=== PATIENT | female | born 1955 | race Two or more races ===

== ENCOUNTER 2021-07-14 14:46 | Inpatient (IN) | payer MEDICARE, BC ==
[~2021-07-14] VITALS: Ht 177.8 cm; Wt 95.2 kg
[2021-07-14] MEDS ORDERED: SODIUM CHLORIDE 0.9% 500 ML IVB ONE (15:15)
[2021-07-14 15:20] LABS: Urine Bacteria MANY /hpf (None Seen); Urine Blood 1+ /uL (Negative); Urine Mucus FEW (None Seen); Urine Specific Gravity 1.025 (1.001-1.035); Urine WBC 127 /hpf (0 - 5); Urine WBC Clumps PRESENT /hpf (None Seen)
[2021-07-14 15:59] LABS: Basophils # (auto) 0.1 10 ^3/uL (0-0.2); Basophils % (auto) 0.4 % (0.0-2.0); Eosinophils # (auto) 0 10 ^3/uL (0-0.8); Eosinophils % (auto) 0.2 % (0.0-7.0); Hematocrit 37.3 % (36.0-46.0); Hemoglobin 12.3 g/dL (12.2-16.2); Lymphocytes % (auto) 14.4 % (10.0-50.0); Mean Corpuscular Hemoglobin 31.9 pg (28.0-32.0); Mean Corpuscular Hgb Conc. 33.1 g/dL (32.0-36.0); Mean Corpuscular Volume 96.3 fL (80.0-100.0); Monocytes # (auto) 0.5 10 ^3/uL (0-1.3); Monocytes % (auto) 3.8 % (0.0-12.0); Neutrophils # (auto) 11.5 10 ^3/uL (1.6-8.6); Neutrophils % (auto) 81.2 % (37.0-80.0); Red Blood Cells 3.87 10^6/uL (4.0-5.20); Red Cell Distribution Width 13.4 % (11.8-14.3); White Blood Cell 14.1 10^3/uL (4.4-10.8)
[2021-07-14 16:07] LABS: Albumin 2.2 g/dL (3.4-5.0); Calcium 8.6 mg/dL (8.5-10.1); Potassium 4.3 mmol/L (3.5-5.1)
[2021-07-14 16:09] LABS: BUN/Creatinine Ratio 9.7
[2021-07-14 16:12] LABS: Bilirubin, Total 0.8 mg/dL (0.2-1.0); Total Protein 6.9 g/dL (6.4-8.2)
[2021-07-14] MEDS ORDERED: cefTRIAXone 1GM/50ML D5W 50 ML IV ONE (16:30)
[2021-07-14] MEDS ORDERED: MORPHINE SULFATE INJECTION 2 MG/ML SYRG IV ONE (16:30)
[2021-07-14] MEDS ORDERED: ONDANSETRON HCL 4 MG/2 ML VIAL IV ONE (16:30)
[2021-07-14] MEDS ORDERED: MORPHINE SULFATE INJECTION 2 MG/ML SYRG IV PRN ×2 (17:45→23:15)
[2021-07-14] MEDS ORDERED: NITROGLYCERIN 0.4 MG SL TAB SL PRN ×2 (17:45→23:15)
[2021-07-14] MEDS ORDERED: DEXTROSE (50%) 50ML SYRG IV PRN (17:45)
[2021-07-14 22:00] VITALS: BP 116/63
[2021-07-14] MEDS ORDERED: InsuLIN REG 1unit/0.01ml Soln (100units/ml) SC SCH (22:00)
[2021-07-14] MEDS: ACCU-CHEK COMFORT CURVE STRIP VI SCH (22:00)
[2021-07-14] MEDS: ACETAMINOPHEN 325 MG TAB PO PRN (23:08)
[2021-07-14] MEDS ORDERED: metroNIDAZOLE 500MG/100ML 100 ML IV ONE (23:15)
[2021-07-14] MEDS ORDERED: ACETAMINOPHEN 325 MG TAB PO PRN (23:15)
[2021-07-14] MEDS ORDERED: METOCLOPRAMIDE HCL 5MG/ml INJ 2ml VIAL IV PRN (23:15)
[2021-07-14] MEDS ORDERED: PANTOPRAZOLE 40 MG/10 ML VIAL INJ IV ONE (23:15)
[2021-07-14] MEDS ORDERED: DOCUSATE SOD 100 MG CAP PO PRN (23:15)
[2021-07-14] MEDS ORDERED: SODIUM CHLORIDE 0.9% 1,000 ML IV SCH (23:15)
[2021-07-14] MEDS ORDERED: ALUM & MAG HYDROX-SIMETH LIQ(MAALOX) 30 ML PO PRN (23:15)
[2021-07-14] MEDS ORDERED: LORazepam 0.5 MG TAB PO PRN (23:15)
[2021-07-14] MEDS ORDERED: LACTATED RINGER'S 1,000 ML IV ONE (23:15)
[2021-07-14] MEDS ORDERED: hydrALAZINE HCL 20 MG/ML VL IV PRN (23:15)
[2021-07-14] MEDS ORDERED: levoFLOXacin 250MG 50 ML IV SCH (23:30)
[2021-07-14 23:39] LABS: Cholesterol 128 mg/dL (< 200)
[2021-07-14 23:41] LABS: HDL Cholesterol 21 mg/dL (40-59); LDL Cholesterol 50 mg/dL (< 100); Triglycerides 204 mg/dL (< 150)
[2021-07-15] VITALS (7 sets, daily range): BP systolic 93–116; BP diastolic 57–63
[2021-07-15] MEDS: HYDROcodone-ACET 5/325MG TAB PO PRN ×3 (00:03→09:37)
[2021-07-15 05:17] LABS: Basophils # (auto) 0 10 ^3/uL (0-0.2); Basophils % (auto) 0.4 % (0.0-2.0); Eosinophils # (auto) 0.1 10 ^3/uL (0-0.8); Eosinophils % (auto) 0.6 % (0.0-7.0); Hematocrit 31.1 % (36.0-46.0); Hemoglobin 10.2 g/dL (12.2-16.2); Lymphocytes % (auto) 8.7 % (10.0-50.0); Mean Corpuscular Hemoglobin 31.2 pg (28.0-32.0); Mean Corpuscular Hgb Conc. 32.8 g/dL (32.0-36.0); Mean Corpuscular Volume 95.1 fL (80.0-100.0); Monocytes # (auto) 0.4 10 ^3/uL (0-1.3); Monocytes % (auto) 3.3 % (0.0-12.0); Neutrophils # (auto) 9.9 10 ^3/uL (1.6-8.6); Red Blood Cells 3.27 10^6/uL (4.0-5.20); Red Cell Distribution Width 13.4 % (11.8-14.3); White Blood Cell 11.4 10^3/uL (4.4-10.8)
[2021-07-15 05:47] LABS: INR 1.37 (0.9-1.15); Partial Thromboplastin Time 39.3 sec (23.6-33.0)
[2021-07-15 05:54] LABS: Albumin 1.7 g/dL (3.4-5.0); Calcium 8.2 mg/dL (8.5-10.1)
[2021-07-15] MEDS: metroNIDAZOLE 500MG/100ML 100 ML IV SCH ×3 (06:02→21:34)
[2021-07-15 06:04] LABS: BUN/Creatinine Ratio 12.4; Bilirubin, Total 0.4 mg/dL (0.2-1.0); Magnesium 1.6 mg/dL (1.6-2.6); Phosphorus 2.5 mg/dL (2.5-4.90); Total Protein 6.8 g/dL (6.4-8.2); Uric Acid 7.4 mg/dL (2.6-6.0)
[2021-07-15] MEDS: InsuLIN REG 1unit/0.01ml Soln (100units/ml) SC SCH ×2 (06:34→12:01)
[2021-07-15] MEDS: ACCU-CHEK COMFORT CURVE STRIP VI SCH ×4 (06:34→21:11)
[2021-07-15] MEDS ORDERED: ASPI81CH49 PO (07:44)
[2021-07-15] MEDS ORDERED: INSLANTI SC (07:44)
[2021-07-15] MEDS ORDERED: LISI40TA11 PO (07:44)
[2021-07-15] MEDS ORDERED: METF-370 PO (07:44)
[2021-07-15] MEDS: PANTOPRAZOLE 40 MG/10 ML VIAL INJ IV SCH (09:35)
[2021-07-15] MEDS: ENOXAPARIN SOD 30 MG/0.3 ML SYRINGE SC SCH (09:36)
[2021-07-15] MEDS ORDERED: ASPirin 81 mg TAB PO SCH (10:00)
[2021-07-15] MEDS ORDERED: DEXTROSE (50%) 50ML SYRG IV PRN (13:00)
[2021-07-15] MEDS ORDERED: cefTRIAXone 1GM/50ML D5W 50 ML IV ONE (13:30)
[2021-07-15] MEDS ORDERED: TPN PER PHARMACY 0 ML IV SCH ×2 (13:30)
[2021-07-15] MEDS ORDERED: MAGNESIUM SULFATE 1GM/100ML 100 ML IV ONE (13:30)
[2021-07-15] MEDS: SODIUM CHLORIDE 0.9% 1,000 ML IV SCH ×2 (13:47→23:30)
[2021-07-15] MEDS: ACETAMINOPHEN 325 MG TAB PO PRN (14:25)
[2021-07-15] MEDS ORDERED: InsuLIN REG 1unit/0.01ml Soln (100units/ml) SC SCH ×2 (17:00→22:00)
[2021-07-15] MEDS: MORPHINE SULFATE INJECTION 2 MG/ML SYRG IV PRN (18:03)
[2021-07-15] MEDS ORDERED: PPN PER PHARMACY IV NR ×7 (20:00)
[2021-07-15] MEDS ORDERED: ATORVASTATIN 20 MG TAB PO SCH (22:00)
[2021-07-16] MEDS ORDERED: DEXTROSE (50%) 50ML SYRG IV SCH
[2021-07-16 02:46] LABS: Amphetamine Screen, Urine NEGATIVE (NEGATIVE); Barbiturate Scree,Urine NEGATIVE (NEGATIVE); Benzodiazephine Screen, Urine NEGATIVE (NEGATIVE); Cannabinoid Screen, Urine NEGATIVE (NEGATIVE); Cocaine Screen, Urine NEGATIVE (NEGATIVE); Opiate Scree,Urine POSITIVE (NEGATIVE); Phencyclidine Screen, Urine NEGATIVE (NEGATIVE)
[2021-07-16 03:12] LABS: Creatinine, Urine 203 mg/dL (30.0-125.0); Sodium Urine 26 mmol/L (40-220)
[2021-07-16 03:16] LABS: Protein, Urine 191.1 mg/dL (0.0-11.9)
[2021-07-16 05:00] VITALS: BP 119/70
[2021-07-16] MEDS: metroNIDAZOLE 500MG/100ML 100 ML IV SCH ×3 (05:29→22:15)
[2021-07-16] MEDS: ACCU-CHEK COMFORT CURVE STRIP VI SCH ×4 (05:31→17:51)
[2021-07-16] MEDS: InsuLIN REG 1unit/0.01ml Soln (100units/ml) SC SCH ×4 (05:40→17:50)
[2021-07-16 06:02] LABS: Basophils # (auto) 0 10 ^3/uL (0-0.2); Basophils % (auto) 0.3 % (0.0-2.0); Eosinophils # (auto) 0 10 ^3/uL (0-0.8); Eosinophils % (auto) 0.3 % (0.0-7.0); Hematocrit 30.6 % (36.0-46.0); Hemoglobin 10.1 g/dL (12.2-16.2); Lymphocytes # (auto) 1.4 10 ^3/uL (0.4-5.4); Lymphocytes % (auto) 10.6 % (10.0-50.0); Mean Corpuscular Hemoglobin 31.6 pg (28.0-32.0); Mean Corpuscular Volume 95.8 fL (80.0-100.0); Monocytes # (auto) 0.4 10 ^3/uL (0-1.3); Monocytes % (auto) 3.2 % (0.0-12.0); Neutrophils # (auto) 10.9 10 ^3/uL (1.6-8.6); Neutrophils % (auto) 85.6 % (37.0-80.0); Red Blood Cells 3.19 10^6/uL (4.0-5.20); Red Cell Distribution Width 13.6 % (11.8-14.3); White Blood Cell 12.8 10^3/uL (4.4-10.8)
[2021-07-16 07:08] LABS: Potassium 4.2 mmol/L (3.5-5.1)
[2021-07-16 07:09] LABS: Albumin 1.6 g/dL (3.4-5.0); BUN/Creatinine Ratio 18.5; Bilirubin, Total 0.3 mg/dL (0.2-1.0); Calcium 8.1 mg/dL (8.5-10.1); Magnesium 1.6 mg/dL (1.6-2.6); Phosphorus 2.3 mg/dL (2.5-4.90); Total Protein 6.1 g/dL (6.4-8.2)
[2021-07-16 09:00] VITALS: BP 134/75
[2021-07-16] MEDS: PANTOPRAZOLE 40 MG/10 ML VIAL INJ IV SCH (09:11)
[2021-07-16] MEDS: cefTRIAXone 1GM/50ML D5W 50 ML IV SCH (09:11)
[2021-07-16] MEDS: ENOXAPARIN SOD 30 MG/0.3 ML SYRINGE SC SCH (09:12)
[2021-07-16] MEDS: MAGNESIUM SULFATE 1GM/100ML 100 ML IV SCH ×2 (09:51→11:31)
[2021-07-16] MEDS ORDERED: POTASSIUM PHOSPHATE 22 MEQ in SODIUM CHL 0.9% 100 ML IV ONE (11:30)
[2021-07-16] MEDS ORDERED: LIDOCAINE 1% (LOCAL ANESTH.) PF 5ml SDV ID ONE (12:00)
[2021-07-16 12:46] VITALS: BP 140/63
[2021-07-16 16:53] VITALS: BP 133/56
[2021-07-16 20:00] VITALS: BP 154/74
[2021-07-16] MEDS ORDERED: PPN PER PHARMACY IV NR ×8 (20:00)
[2021-07-16 22:00] VITALS: BP 154/74
[2021-07-16] MEDS: SODIUM CHLOR 0.9% PF (SALINE LOCK) 10ML VIAL/SYR IV SCH (22:14)
[2021-07-17] MEDS: InsuLIN REG 1unit/0.01ml Soln (100units/ml) SC SCH ×4 (00:30→18:18)
[2021-07-17] MEDS: ACCU-CHEK COMFORT CURVE STRIP VI SCH ×4 (00:43→18:00)
[2021-07-17 05:00] VITALS: BP 123/64
[2021-07-17] MEDS: metroNIDAZOLE 500MG/100ML 100 ML IV SCH ×2 (06:14→15:52)
[2021-07-17 06:56] LABS: Basophils # (auto) 0.1 10 ^3/uL (0-0.2); Basophils % (auto) 0.6 % (0.0-2.0); Eosinophils # (auto) 0.1 10 ^3/uL (0-0.8); Eosinophils % (auto) 1.2 % (0.0-7.0); Hematocrit 30.7 % (36.0-46.0); Hemoglobin 10.2 g/dL (12.2-16.2); Lymphocytes # (auto) 1.1 10 ^3/uL (0.4-5.4); Mean Corpuscular Hemoglobin 31.5 pg (28.0-32.0); Mean Corpuscular Hgb Conc. 33.1 g/dL (32.0-36.0); Monocytes # (auto) 0.6 10 ^3/uL (0-1.3); Monocytes % (auto) 5.9 % (0.0-12.0); Neutrophils # (auto) 7.9 10 ^3/uL (1.6-8.6); Neutrophils % (auto) 81.3 % (37.0-80.0); Red Blood Cells 3.23 10^6/uL (4.0-5.20); White Blood Cell 9.7 10^3/uL (4.4-10.8)
[2021-07-17 07:22] LABS: Albumin 1.6 g/dL (3.4-5.0); Calcium 7.9 mg/dL (8.5-10.1); Magnesium 2.6 mg/dL (1.6-2.6); Potassium 4.4 mmol/L (3.5-5.1)
[2021-07-17 07:26] LABS: BUN/Creatinine Ratio 18.2; Bilirubin, Total 0.4 mg/dL (0.2-1.0); Phosphorus 2.4 mg/dL (2.5-4.90); Total Protein 6.1 g/dL (6.4-8.2)
[2021-07-17 08:50] VITALS: BP 140/55
[2021-07-17] MEDS: cefTRIAXone 1GM/50ML D5W 50 ML IV SCH (09:20)
[2021-07-17] MEDS: SODIUM CHLOR 0.9% PF (SALINE LOCK) 10ML VIAL/SYR IV SCH (09:21)
[2021-07-17] MEDS: PANTOPRAZOLE 40 MG/10 ML VIAL INJ IV SCH (09:21)
[2021-07-17] MEDS ORDERED: ENOXAPARIN SOD 40 MG/0.4 ML SYRINGE SC SCH (10:00)
[2021-07-17 12:00] VITALS: BP 144/78
[2021-07-17 17:00] VITALS: BP 144/72
[2021-07-17] MEDS ORDERED: TPN PER PHARMACY IV NR ×7 (20:00)
[2021-07-17 22:00] VITALS: BP 163/94
[2021-07-18] MEDS: ACCU-CHEK COMFORT CURVE STRIP VI SCH ×4 (00:27→17:33)
[2021-07-18] MEDS: InsuLIN REG 1unit/0.01ml Soln (100units/ml) SC SCH ×4 (00:27→17:32)
[2021-07-18] MEDS: metroNIDAZOLE 500MG/100ML 100 ML IV SCH ×4 (00:29→21:31)
[2021-07-18] MEDS: SODIUM CHLOR 0.9% PF (SALINE LOCK) 10ML VIAL/SYR IV SCH ×3 (00:29→21:47)
[2021-07-18 05:00] VITALS: BP 144/85
[2021-07-18 06:51] LABS: Albumin 1.3 g/dL (3.4-5.0); BUN/Creatinine Ratio 20.8; Bilirubin, Total 0.4 mg/dL (0.2-1.0); Phosphorus 2.5 mg/dL (2.5-4.90); Total Protein 5.1 g/dL (6.4-8.2)
[2021-07-18 08:07] LABS: Calcium 5.8 mg/dL (8.5-10.1)
[2021-07-18 09:00] VITALS: BP 139/79
[2021-07-18] MEDS: cefTRIAXone 1GM/50ML D5W 50 ML IV SCH (12:38)
[2021-07-18 12:50] VITALS: BP 146/76
[2021-07-18 16:36] VITALS: BP 126/80
[2021-07-18 19:30] VITALS: BP 148/66
[2021-07-18] MEDS ORDERED: TPN PER PHARMACY IV NR ×9 (20:00)
[2021-07-18 22:00] VITALS: BP 148/66
[2021-07-19] MEDS: ACCU-CHEK COMFORT CURVE STRIP VI SCH ×5 (00:31→23:50)
[2021-07-19] MEDS: InsuLIN REG 1unit/0.01ml Soln (100units/ml) SC SCH ×5 (00:32→23:48)
[2021-07-19 05:00] VITALS: BP 146/81
[2021-07-19] MEDS: metroNIDAZOLE 500MG/100ML 100 ML IV SCH ×3 (05:46→21:54)
[2021-07-19] MEDS: MORPHINE SULFATE INJECTION 2 MG/ML SYRG IV PRN (05:46)
[2021-07-19 06:14] LABS: Basophils # (auto) 0 10 ^3/uL (0-0.2); Basophils % (auto) 0.4 % (0.0-2.0); Eosinophils # (auto) 0.3 10 ^3/uL (0-0.8); Eosinophils % (auto) 3.1 % (0.0-7.0); Hemoglobin 11.1 g/dL (12.2-16.2); Lymphocytes # (auto) 1.4 10 ^3/uL (0.4-5.4); Lymphocytes % (auto) 14.1 % (10.0-50.0); Mean Corpuscular Hemoglobin 30.6 pg (28.0-32.0); Mean Corpuscular Hgb Conc. 32.7 g/dL (32.0-36.0); Mean Corpuscular Volume 93.7 fL (80.0-100.0); Monocytes # (auto) 0.9 10 ^3/uL (0-1.3); Monocytes % (auto) 9.7 % (0.0-12.0); Neutrophils # (auto) 7.1 10 ^3/uL (1.6-8.6); Neutrophils % (auto) 72.7 % (37.0-80.0); Nucleated Red Blood Cells % 0.1 %; Red Blood Cells 3.63 10^6/uL (4.0-5.20); Red Cell Distribution Width 14.1 % (11.8-14.3); White Blood Cell 9.7 10^3/uL (4.4-10.8)
[2021-07-19 06:25] LABS: Potassium 3.9 mmol/L (3.5-5.1)
[2021-07-19 06:35] LABS: Albumin 1.7 g/dL (3.4-5.0); Bilirubin, Total 0.5 mg/dL (0.2-1.0); Phosphorus 3.5 mg/dL (2.5-4.90); Total Protein 6.3 g/dL (6.4-8.2)
[2021-07-19 09:00] VITALS: BP 134/78
[2021-07-19] MEDS ORDERED: LACTULOSE 20Gm/30ML SOLN PO PRN (09:45)
[2021-07-19] MEDS: cefTRIAXone 1GM/50ML D5W 50 ML IV SCH (10:00)
[2021-07-19] MEDS: SODIUM CHLOR 0.9% PF (SALINE LOCK) 10ML VIAL/SYR IV SCH ×2 (10:00→21:54)
[2021-07-19 13:00] VITALS: BP 139/76
[2021-07-19 17:00] VITALS: BP 142/80
[2021-07-19] MEDS ORDERED: TPN PER PHARMACY IV SCH ×10 (20:00)
[2021-07-19 20:20] VITALS: BP_SYST 145; BP_SYST 148; BP_DIAS 66
[2021-07-19 21:45] VITALS: BP 145/66
[2021-07-19] MEDS ORDERED: DEXTROSE (50%) 50ML SYRG IV PRN (23:30)
[2021-07-20] MEDS ORDERED: InsuLIN REG 1unit/0.01ml Soln (100units/ml) SC SCH
[2021-07-20] MEDS ORDERED: ACCU-CHEK COMFORT CURVE STRIP VI SCH
[2021-07-20] MEDS ORDERED: DEXTROSE (50%) 50ML SYRG IV PRN (00:15)
[2021-07-20 05:00] VITALS: BP 147/69
[2021-07-20] MEDS: ACCU-CHEK COMFORT CURVE STRIP VI SCH ×3 (05:37→18:24)
[2021-07-20] MEDS: metroNIDAZOLE 500MG/100ML 100 ML IV SCH (05:37)
[2021-07-20] MEDS: InsuLIN REG 1unit/0.01ml Soln (100units/ml) SC SCH ×4 (05:47→23:59)
[2021-07-20 06:51] LABS: Basophils # (auto) 0 10 ^3/uL (0-0.2); Basophils % (auto) 0.3 % (0.0-2.0); Eosinophils # (auto) 0.3 10 ^3/uL (0-0.8); Eosinophils % (auto) 2.4 % (0.0-7.0); Hematocrit 32.3 % (36.0-46.0); Hemoglobin 10.7 g/dL (12.2-16.2); Lymphocytes # (auto) 1.6 10 ^3/uL (0.4-5.4); Lymphocytes % (auto) 12.8 % (10.0-50.0); Mean Corpuscular Hemoglobin 31.1 pg (28.0-32.0); Mean Corpuscular Hgb Conc. 33.3 g/dL (32.0-36.0); Mean Corpuscular Volume 93.4 fL (80.0-100.0); Monocytes # (auto) 0.9 10 ^3/uL (0-1.3); Monocytes % (auto) 7.1 % (0.0-12.0); Neutrophils # (auto) 9.5 10 ^3/uL (1.6-8.6); Neutrophils % (auto) 77.4 % (37.0-80.0); Red Blood Cells 3.46 10^6/uL (4.0-5.20); White Blood Cell 12.2 10^3/uL (4.4-10.8)
[2021-07-20 07:05] LABS: Albumin 1.7 g/dL (3.4-5.0); Calcium 8.2 mg/dL (8.5-10.1); Potassium 3.8 mmol/L (3.5-5.1)
[2021-07-20 07:20] LABS: BUN/Creatinine Ratio 14.7; Bilirubin, Total 0.5 mg/dL (0.2-1.0)
[2021-07-20] MEDS ORDERED: IOHEXOL 300 MG/ML 100ML BOTTLE IJ ONE (07:42)
[2021-07-20 09:00] VITALS: BP 129/79
[2021-07-20] MEDS: SODIUM CHLOR 0.9% PF (SALINE LOCK) 10ML VIAL/SYR IV SCH ×2 (09:53→22:01)
[2021-07-20] MEDS: cefTRIAXone 1GM/50ML D5W 50 ML IV SCH (09:53)
[2021-07-20 12:49] VITALS: BP 152/93
[2021-07-20 17:00] VITALS: BP 147/69
[2021-07-20] MEDS: metroNIDAZOLE 500 MG TAB PO SCH (21:56)
[2021-07-21] MEDS: ACCU-CHEK COMFORT CURVE STRIP VI SCH ×3 (00:01→12:21)
[2021-07-21 05:00] VITALS: BP 146/83
[2021-07-21] MEDS: metroNIDAZOLE 500 MG TAB PO SCH ×2 (05:47→15:12)
[2021-07-21] MEDS: InsuLIN REG 1unit/0.01ml Soln (100units/ml) SC SCH ×2 (05:56→11:30)
[2021-07-21 05:58] LABS: Basophils # (auto) 0.1 10 ^3/uL (0-0.2); Basophils % (auto) 0.6 % (0.0-2.0); Eosinophils # (auto) 0.3 10 ^3/uL (0-0.8); Eosinophils % (auto) 2.5 % (0.0-7.0); Hematocrit 31.8 % (36.0-46.0); Hemoglobin 10.4 g/dL (12.2-16.2); Lymphocytes # (auto) 1.4 10 ^3/uL (0.4-5.4); Lymphocytes % (auto) 13.2 % (10.0-50.0); Mean Corpuscular Hemoglobin 30.9 pg (28.0-32.0); Mean Corpuscular Hgb Conc. 32.5 g/dL (32.0-36.0); Mean Corpuscular Volume 94.9 fL (80.0-100.0); Monocytes # (auto) 0.7 10 ^3/uL (0-1.3); Monocytes % (auto) 6.8 % (0.0-12.0); Neutrophils # (auto) 8.3 10 ^3/uL (1.6-8.6); Neutrophils % (auto) 76.9 % (37.0-80.0); Red Blood Cells 3.36 10^6/uL (4.0-5.20); Red Cell Distribution Width 14.5 % (11.8-14.3); White Blood Cell 10.8 10^3/uL (4.4-10.8)
[2021-07-21 06:21] LABS: BUN/Creatinine Ratio 14.9; Calcium 8.1 mg/dL (8.5-10.1)
[2021-07-21 09:27] VITALS: BP 138/75
[2021-07-21] MEDS: cefTRIAXone 1GM/50ML D5W 50 ML IV SCH (09:32)
[2021-07-21] MEDS: SODIUM CHLOR 0.9% PF (SALINE LOCK) 10ML VIAL/SYR IV SCH (10:17)
[2021-07-21 13:00] VITALS: BP 137/77
[2021-07-21 14:45] VITALS: BP 112/78
== END 2021-07-21 16:25 | disposition home or self-care (01) | DRG 871 ==
LOC: ER 14:46 → WEST WING 17:37
PROVIDERS: ADMIT Hospitalist; ATTEND Internal Medicine
PROC: 02H633Z Insertion of Infusion Device into Right Atrium, Percutaneous Approach (ICD-10-PCS; principal; 2021-07-14)
PROC: 0DH67UZ Insertion of Feeding Device into Stomach, Via Natural or Artificial Opening (ICD-10-PCS; 2021-07-16)
DX: A41.9 Sepsis, unspecified organism (principal); R65.21 Severe sepsis with septic shock; N17.0 Acute kidney failure with tubular necrosis; K57.20 Diverticulitis of large intestine with perforation and abscess without bleeding; N18.4 Chronic kidney disease, stage 4 (severe); N10 Acute pyelonephritis; E66.9 Obesity, unspecified; E78.5 Hyperlipidemia, unspecified; E88.09 Other disorders of plasma-protein metabolism, not elsewhere classified; K21.9 Gastro-esophageal reflux disease without esophagitis; K44.9 Diaphragmatic hernia without obstruction or gangrene; I12.9 Hypertensive chronic kidney disease with stage 1 through stage 4 chronic kidney disease, or unspecified chronic kidney disease; E11.22 Type 2 diabetes mellitus with diabetic chronic kidney disease; E11.40 Type 2 diabetes mellitus with diabetic neuropathy, unspecified; K29.70 Gastritis, unspecified, without bleeding; Z20.822 Contact with and (suspected) exposure to COVID-19; K59.00 Constipation, unspecified; K80.20 Calculus of gallbladder without cholecystitis without obstruction; M19.90 Unspecified osteoarthritis, unspecified site; Z72.0 Tobacco use; Z80.0 Family history of malignant neoplasm of digestive organs; Z83.3 Family history of diabetes mellitus; Z88.2 Allergy status to sulfonamides; Z68.27 Body mass index [BMI] 27.0-27.9, adult
CPT/HCPCS: 36415; 36569; 71045; 71046; 74176; 74177; 76775; 80048; 80053; 80061; 80307; 81001; 82040; 82306; 82570; 82962; 83036; 83690; 83735; 83880; 83970; 84100; 84156; 84300; 84443; 84478; 84484; 84550; 85025; 85379; 85610; 85730; 87040; 87086; 87426; 93005; 93306; 96365; 96375; C9113; G0378; J0696; J1815; J2405; J3490; J7131

== ENCOUNTER 2023-11-30 17:08 | Inpatient (IN) | payer MEDICARE, BC ==
[~2023-11-30] VITALS: Ht 177.8 cm; Wt 99.6 kg
[~2023-11-30 17:08] MED LIST: ASPI81CH49 PO; INSLANTI SC; LISI40TA16 PO; METF-370 PO
[2023-11-30 18:22] LABS: Basophils # (auto) 0.1 10 ^3/uL (0-0.2); Basophils % (auto) 0.7 % (0.0-2.0); Eosinophils # (auto) 0.1 10 ^3/uL (0-0.8); Eosinophils % (auto) 0.4 % (0.0-7.0); Hematocrit 39.9 % (36.0-46.0); Hemoglobin 12.9 g/dL (12.2-16.2); Lymphocytes # (auto) 1.8 10 ^3/uL (0.4-5.4); Lymphocytes % (auto) 10.8 % (10.0-50.0); Mean Corpuscular Hemoglobin 31.6 pg (28.0-32.0); Mean Corpuscular Hgb Conc. 32.3 g/dL (32.0-36.0); Mean Corpuscular Volume 97.8 fL (80.0-100.0); Monocytes # (auto) 1.1 10 ^3/uL (0-1.3); Monocytes % (auto) 6.6 % (0.0-12.0); Neutrophils # (auto) 13.9 10 ^3/uL (1.6-8.6); Neutrophils % (auto) 81.5 % (37.0-80.0); Red Blood Cells 4.08 10^6/uL (4.0-5.20); Red Cell Distribution Width 13.9 % (11.8-14.3)
[2023-11-30 18:39] LABS: Alanine Aminotransferase 27 U/L (7-40); Albumin 4.4 g/dL (3.2-4.8); Alkaline Phosphatase 85 U/L (46-116); Anion Gap 9 (5-15); Aspartate Aminotransferase 19 U/L (13-40); BUN/Creatinine Ratio 16.8 (10.0-20.0); Blood Urea Nitrogen 32 mg/dL (9-23); Carbon Dioxide 21 mmol/L (20-30); Chloride 103 mmol/L (98-107); Glucose 254 mg/dL (74-106); Potassium 3.7 mmol/L (3.5-5.1); Sodium 133 mmol/L (136-145)
[2023-11-30 18:40] LABS: Bilirubin, Total 0.6 mg/dL (0.2-1.0)
[2023-11-30] MEDS: VANCOMYCIN 1GM/200ML 200 ML IV ONE ×2 (18:45→23:18)
[2023-11-30 19:10] LABS: Erythrocyte Sedimentation Rate 84 mm/hr (0-20)
[2023-11-30 19:13] LABS: Lactic Acid w/Reflex 3.3 mmol/L (0.4-2.0)
[2023-11-30] MEDS: SODIUM CHLORIDE 0.9% 1,000 ML IV ONE (20:03)
[2023-11-30] MEDS: CLINDAMYCIN 900MG IV 50 ML IV ONE (20:05)
[2023-11-30] MEDS: ACETAMINOPHEN 325 MG TAB PO ONE (20:21)
[2023-11-30] MEDS: PIPERACILLIN-TAZO 4.5GM 100 ML IV ONE (21:15)
[2023-11-30] MEDS ORDERED: ACETAMINOPHEN 325 MG TAB PO PRN (22:15)
[2023-11-30] MEDS ORDERED: hydrALAZINE HCL 20 MG/ML VL IV PRN (22:15)
[2023-11-30] MEDS ORDERED: DEXTROSE (50%) 50ML SYRG IV PRN (22:15)
[2023-11-30] MEDS ORDERED: DOCUSATE SOD 100 MG CAP PO PRN (22:15)
[2023-11-30] MEDS ORDERED: VANCOMYCIN PER PHARMACY 0 MG IV SCH (22:15)
[2023-11-30] MEDS: SODIUM CHLORIDE 0.9% 1,000 ML IV SCH (23:10)
[2023-11-30] MEDS ORDERED: MORPHINE SULFATE INJ 2 MG/ml SYRG IV PRN (23:45)
[2023-11-30] MEDS ORDERED: NITROGLYCERIN 0.4 MG SL TAB SL PRN (23:45)
[2023-12-01 05:59] LABS: Alanine Aminotransferase 25 U/L (7-40); Alkaline Phosphatase 89 U/L (46-116); Anion Gap 14 (5-15); BUN/Creatinine Ratio 18.4 (10.0-20.0); Calcium 10.1 mg/dL (8.7-10.4); Carbon Dioxide 19 mmol/L (20-30); Chloride 102 mmol/L (98-107); Glucose 226 mg/dL (74-106); Potassium 4.2 mmol/L (3.5-5.1); Sodium 135 mmol/L (136-145)
[2023-12-01 06:00] LABS: Urine Bacteria FEW /hpf (None Seen); Urine Blood TRACE /uL (Negative); Urine Clarity Turbid (Clear); Urine Color Yellow (Yellow); Urine Hyaline Cast FEW /lpf (0 - 2); Urine Mucus FEW (None Seen); Urine Protein, UAD 1+ (Negative); Urine Specific Gravity 1.028 (1.001-1.035); Urine Urobilinogen Normal (Negative); Urine WBC 35 /hpf (0 - 5)
[2023-12-01 06:00] LABS: Albumin 3.8 g/dL (3.2-4.8)
[2023-12-01] MEDS: CLINDAMYCIN 600MG IV 50 ML IV SCH (06:00)
[2023-12-01 06:01] LABS: Aspartate Aminotransferase 18 U/L (13-40); Bilirubin, Total 0.7 mg/dL (0.2-1.0); Total Protein 6.7 g/dL (5.7-8.2)
[2023-12-01 06:16] LABS: Blood Urea Nitrogen 44 mg/dL (9-23)
[2023-12-01] MEDS: ACCU-CHEK COMFORT CURVE STRIP VI SCH (06:28)
[2023-12-01 06:53] LABS: Basophils # (auto) 0.1 10 ^3/uL (0-0.2); Basophils % (auto) 0.6 % (0.0-2.0); Eosinophils # (auto) 0.1 10 ^3/uL (0-0.8); Eosinophils % (auto) 0.8 % (0.0-7.0); Hematocrit 35.8 % (36.0-46.0); Hemoglobin 11.7 g/dL (12.2-16.2); Lymphocytes # (auto) 2.3 10 ^3/uL (0.4-5.4); Lymphocytes % (auto) 15.1 % (10.0-50.0); Mean Corpuscular Hemoglobin 31.8 pg (28.0-32.0); Mean Corpuscular Hgb Conc. 32.8 g/dL (32.0-36.0); Mean Corpuscular Volume 97.2 fL (80.0-100.0); Monocytes # (auto) 1.2 10 ^3/uL (0-1.3); Monocytes % (auto) 8.1 % (0.0-12.0); Neutrophils # (auto) 11.4 10 ^3/uL (1.6-8.6); Neutrophils % (auto) 75.4 % (37.0-80.0); Red Blood Cells 3.69 10^6/uL (4.0-5.20); Red Cell Distribution Width 13.6 % (11.8-14.3); White Blood Cell 15.1 10^3/uL (4.4-10.8)
[2023-12-01] MEDS: InsuLIN REG 1unit/0.01ml Soln (100units/ml) SC SCH ×2 (07:00→22:11)
[2023-12-01] MEDS: ASPirin 81 mg TAB PO SCH (10:24)
[2023-12-01 10:28] VITALS: BP 105/64; PULSE 89; RESP 18; TEMP 98; O2SAT 97
[2023-12-01 13:00] VITALS: BP 124/75; PULSE 90; RESP 20; TEMP 98.6; O2SAT 92
[2023-12-01 17:00] VITALS: BP 119/56; PULSE 86; RESP 20; TEMP 98.3; O2SAT 92
[2023-12-01] MEDS: VANCOMYCIN 1GM/200ML 200 ML IV ONE (17:58)
[2023-12-01 21:00] VITALS: BP 140/85; PULSE 97; RESP 20; TEMP 98.7; O2SAT 95
[2023-12-02] VITALS (7 sets, daily range): BP systolic 118–119; BP diastolic 52–89; PULSE 73–78; RESP 17–20; TEMP 97.7–98.5; O2SAT 93–98
[2023-12-02 06:10] LABS: Chloride 110 mmol/L (98-107); Potassium 4.4 mmol/L (3.5-5.1); Sodium 138 mmol/L (136-145)
[2023-12-02 06:11] LABS: Anion Gap 4 (5-15); Calcium 9.7 mg/dL (8.7-10.4); Carbon Dioxide 24 mmol/L (20-30)
[2023-12-02 06:16] LABS: BUN/Creatinine Ratio 23.3 (10.0-20.0); Glucose 216 mg/dL (74-106)
[2023-12-02 06:41] LABS: Blood Urea Nitrogen 30 mg/dL (9-23)
[2023-12-02] MEDS: cefTRIAXone 1GM/50ML D5W 50 ML IV SCH (09:44)
[2023-12-02 10:38] LABS: Phosphorus 3.4 mg/dL (2.4-5.1)
[2023-12-02 10:46] LABS: Magnesium 1.3 mg/dL (1.6-2.6)
[2023-12-02] MEDS: VANCOMYCIN 1GM/200ML 200 ML IV SCH (12:07)
[2023-12-02] MEDS: DAKINS QUARTER STR 0.125% (NaHypochlorite) 473 ML TOPICAL SOL TOP SCH (22:05)
[2023-12-03] VITALS (8 sets, daily range): BP systolic 124–161; BP diastolic 56–78; PULSE 70–109; RESP 18–20; TEMP 97.6–98.7; O2SAT 93–99
[2023-12-03 06:58] LABS: Chloride 108 mmol/L (98-107); Potassium 4.8 mmol/L (3.5-5.1); Sodium 138 mmol/L (136-145)
[2023-12-03 06:59] LABS: Anion Gap 7 (5-15); Calcium 9.1 mg/dL (8.5-10.1); Carbon Dioxide 23 mmol/L (20-30)
[2023-12-03 07:04] LABS: BUN/Creatinine Ratio 22.2 (10.0-20.0); Blood Urea Nitrogen 22 mg/dL (9-23); Glucose 215 mg/dL (74-106)
[2023-12-03] MEDS: ERGOCALCIFEROL 50,000 UNIT(1.25MG) CAP PO SCH (11:22)
[2023-12-03] MEDS: MAGNESIUM SULFATE 1GM/100ML 100 ML IV SCH (11:22)
[2023-12-03 14:03] LABS: INR 1.09 (0.9-1.15); Partial Thromboplastin Time 32.5 SEC (24.5-34.5); Prothrombin Time 11.4 sec (9.3-11.8)
[2023-12-03] MEDS: LIDOCAINE 1% (LOCAL ANESTH.) PF 5ml SDV ID ONE (16:40)
[2023-12-03] MEDS ORDERED: PATIENTS OWN MEDICATION (meropenem 1 GM) IV SCH (22:00)
[2023-12-03] MEDS: SODIUM CHLOR 0.9% PF (SALINE LOCK) 10ML VIAL/SYR IV SCH (22:00)
[2023-12-03] MEDS: MEROPENEM 1GM IVPB 50 ML IV SCH (23:25)
[2023-12-04] VITALS (7 sets, daily range): BP systolic 126–139; BP diastolic 67–89; PULSE 75–96; RESP 18–20; TEMP 97.8–98.7; O2SAT 94–98
[2023-12-04 07:14] LABS: Alanine Aminotransferase 40 U/L (7-40); Alkaline Phosphatase 80 U/L (46-116); Anion Gap 5 (5-15); Aspartate Aminotransferase 25 U/L (13-40); BUN/Creatinine Ratio 16.1 (10.0-20.0); Blood Urea Nitrogen 14 mg/dL (9-23); Calcium 9.2 mg/dL (8.5-10.1); Carbon Dioxide 26 mmol/L (20-30); Chloride 105 mmol/L (98-107); Glucose 215 mg/dL (74-106); Potassium 4.6 mmol/L (3.5-5.1); Sodium 136 mmol/L (136-145)
[2023-12-04 07:15] LABS: Bilirubin, Total 0.4 mg/dL (0.2-1.0); INR 1.09 (0.9-1.15); Partial Thromboplastin Time 30.8 SEC (24.5-34.5); Prothrombin Time 11.4 sec (9.3-11.8)
[2023-12-04 07:24] LABS: Basophils # (auto) 0.1 10 ^3/uL (0-0.2); Eosinophils # (auto) 0.2 10 ^3/uL (0-0.8); Eosinophils % (auto) 2.5 % (0.0-7.0); Hematocrit 34.8 % (36.0-46.0); Hemoglobin 11.3 g/dL (12.2-16.2); Lymphocytes # (auto) 1.7 10 ^3/uL (0.4-5.4); Mean Corpuscular Hemoglobin 31.2 pg (28.0-32.0); Mean Corpuscular Hgb Conc. 32.4 g/dL (32.0-36.0); Mean Corpuscular Volume 96.2 fL (80.0-100.0); Monocytes # (auto) 0.7 10 ^3/uL (0-1.3); Monocytes % (auto) 7.9 % (0.0-12.0); Neutrophils # (auto) 5.7 10 ^3/uL (1.6-8.6); Neutrophils % (auto) 68.6 % (37.0-80.0); Red Blood Cells 3.62 10^6/uL (4.0-5.20); Red Cell Distribution Width 13.8 % (11.8-14.3); White Blood Cell 8.4 10^3/uL (4.4-10.8)
[2023-12-04] MEDS ORDERED: fentaNYL CITRATE 100 MCG/2 ML VL ONE (10:01)
[2023-12-04] MEDS ORDERED: MIDAZOLAM HCL 2MG/2ML 2ml VIAL (1mg/ml) ONE (10:01)
[2023-12-04] MEDS ORDERED: KETAMINE 50mg/ML 10ml Vial 10 ML ONE (10:26)
[2023-12-04] MEDS ORDERED: HYDROmorphone HCL 2 MG/ML VL/or syr IV PRN ×2 (12:00)
[2023-12-04] MEDS ORDERED: ONDANSETRON HCL 4 MG/2 ML VIAL ONE (12:29)
[2023-12-04] MEDS ORDERED: LIDOCAINE 2% (LOCAL ANESTH.) PF 5ml SDV ONE (12:30)
[2023-12-04] MEDS ORDERED: PROPOFOL 10 MG/ML 20 ML IV ONE (12:30)
[2023-12-04] MEDS: MAGNESIUM SULFATE 1GM/100ML 100 ML IV SCH (14:13)
[2023-12-04] MEDS: ONDANSETRON HCL 4 MG/2 ML VIAL IV ONE (16:19)
[2023-12-04] MEDS: LIDOCAINE 1% HCL (LOCAL ANESTH.) INJ 20ML MDV ONE (16:19)
[2023-12-04] MEDS: BUPIVACAINE HCL 50 ML ONE (16:19)
[2023-12-04] MEDS: HYDROcodone-ACET 5/325MG TAB PO PRN (21:53)
[2023-12-05] VITALS (8 sets, daily range): BP systolic 113–151; BP diastolic 55–77; PULSE 74–89; RESP 17–20; TEMP 97.4–98.5; O2SAT 95–99
[2023-12-05] MEDS: VANCOMYCIN 1GM/200ML 200 ML IV SCH (03:39)
[2023-12-05 07:12] LABS: Basophils # (auto) 0.1 10 ^3/uL (0-0.2); Basophils % (auto) 0.8 % (0.0-2.0); Eosinophils # (auto) 0.2 10 ^3/uL (0-0.8); Eosinophils % (auto) 1.9 % (0.0-7.0); Hematocrit 31.7 % (36.0-46.0); Hemoglobin 10.6 g/dL (12.2-16.2); Lymphocytes # (auto) 1.7 10 ^3/uL (0.4-5.4); Lymphocytes % (auto) 18.8 % (10.0-50.0); Mean Corpuscular Hemoglobin 32.3 pg (28.0-32.0); Mean Corpuscular Hgb Conc. 33.6 g/dL (32.0-36.0); Mean Corpuscular Volume 96.2 fL (80.0-100.0); Monocytes # (auto) 0.8 10 ^3/uL (0-1.3); Monocytes % (auto) 8.5 % (0.0-12.0); Neutrophils # (auto) 6.3 10 ^3/uL (1.6-8.6); Red Blood Cells 3.29 10^6/uL (4.0-5.20); White Blood Cell 9.1 10^3/uL (4.4-10.8)
[2023-12-05 07:17] LABS: Alanine Aminotransferase 29 U/L (7-40); Alkaline Phosphatase 67 U/L (46-116); Anion Gap 4 (5-15); BUN/Creatinine Ratio 14.4 (10.0-20.0); Blood Urea Nitrogen 13 mg/dL (9-23); Carbon Dioxide 25 mmol/L (20-30); Chloride 105 mmol/L (98-107); Glucose 225 mg/dL (74-106); Potassium 4.9 mmol/L (3.5-5.1); Sodium 134 mmol/L (136-145)
[2023-12-05 07:18] LABS: Albumin 3.5 g/dL (3.2-4.8); Aspartate Aminotransferase 12 U/L (13-40); Bilirubin, Total 0.4 mg/dL (0.2-1.0); Total Protein 6.3 g/dL (5.7-8.2)
[2023-12-05] MEDS: ONDANSETRON HCL 4 MG/2 ML VIAL IV PRN (11:23)
[2023-12-05] MEDS: MORPHINE SULFATE 4 MG/ML SYR/VIAL IV PRN (11:24)
[2023-12-05] MEDS: MAGNESIUM SULFATE 1GM/100ML 100 ML IV SCH (14:49)
[2023-12-06] VITALS (8 sets, daily range): BP systolic 120–155; BP diastolic 51–88; PULSE 72–81; RESP 16–18; TEMP 97.7–98.5; O2SAT 92–98
[2023-12-06 03:34] LABS: Alanine Aminotransferase 26 U/L (7-40); Albumin 3.3 g/dL (3.2-4.8); Alkaline Phosphatase 62 U/L (46-116); Anion Gap 2 (5-15); Aspartate Aminotransferase 13 U/L (13-40); BUN/Creatinine Ratio 26.8 (10.0-20.0); Bilirubin, Total 0.3 mg/dL (0.2-1.0); Blood Urea Nitrogen 15 mg/dL (9-23); Carbon Dioxide 25 mmol/L (20-30); Chloride 108 mmol/L (98-107); Glucose 195 mg/dL (74-106); Potassium 5.4 mmol/L (3.5-5.1); Sodium 135 mmol/L (136-145); Total Protein 5.6 g/dL (5.7-8.2)
[2023-12-06 03:35] LABS: Basophils # (auto) 0.1 10 ^3/uL (0-0.2); Basophils % (auto) 1.3 % (0.0-2.0); Eosinophils # (auto) 0.2 10 ^3/uL (0-0.8); Eosinophils % (auto) 3.1 % (0.0-7.0); Hematocrit 32.1 % (36.0-46.0); Hemoglobin 10.6 g/dL (12.2-16.2); Lymphocytes # (auto) 1.9 10 ^3/uL (0.4-5.4); Lymphocytes % (auto) 23.2 % (10.0-50.0); Mean Corpuscular Hemoglobin 31.7 pg (28.0-32.0); Monocytes # (auto) 0.6 10 ^3/uL (0-1.3); Monocytes % (auto) 7.9 % (0.0-12.0); Neutrophils # (auto) 5.2 10 ^3/uL (1.6-8.6); Neutrophils % (auto) 64.5 % (37.0-80.0); Red Blood Cells 3.35 10^6/uL (4.0-5.20); Red Cell Distribution Width 13.9 % (11.8-14.3)
[2023-12-06] MEDS ORDERED: MORPHINE SULFATE INJ 2 MG/ml SYRG IV PRN (11:30)
[2023-12-06] MEDS ORDERED: HYDROmorphone HCL 2 MG/ML VL/or syr IV PRN ×2 (11:30)
[2023-12-06] MEDS: ACCU-CHEK COMFORT CURVE STRIP VI ONE (11:43)
[2023-12-06] MEDS ORDERED: fentaNYL CITRATE 100 MCG/2 ML VL ONE (11:43)
[2023-12-06] MEDS ORDERED: SODIUM CHLORIDE LOCK 10 ML ONE (11:44)
[2023-12-06] MEDS ORDERED: PROPOFOL 10 MG/ML 20 ML IV ONE (11:44)
[2023-12-06] MEDS ORDERED: MIDAZOLAM HCL 2MG/2ML 2ml VIAL (1mg/ml) ONE (11:44)
[2023-12-06] MEDS: KETOROLAC TROMETH 30 MG/ML 1ML VIAL IV ONE (17:31)
[2023-12-06] MEDS: ceFAZolin 2 GM/D5W50ml 50 ML IV ONE (17:31)
[2023-12-06] MEDS: METOCLOPRAMIDE HCL 5MG/ml INJ 2ml VIAL IV ONE (17:31)
[2023-12-07] VITALS (8 sets, daily range): BP systolic 131–145; BP diastolic 50–76; PULSE 65–94; RESP 14–19; TEMP 97.2–98.8; O2SAT 95–98
[2023-12-07 06:33] LABS: Basophils # (auto) 0.1 10 ^3/uL (0-0.2); Basophils % (auto) 1.2 % (0.0-2.0); Eosinophils # (auto) 0.3 10 ^3/uL (0-0.8); Eosinophils % (auto) 3.9 % (0.0-7.0); Hematocrit 32.7 % (36.0-46.0); Hemoglobin 10.9 g/dL (12.2-16.2); Lymphocytes # (auto) 2.1 10 ^3/uL (0.4-5.4); Lymphocytes % (auto) 26.1 % (10.0-50.0); Mean Corpuscular Hemoglobin 31.9 pg (28.0-32.0); Mean Corpuscular Hgb Conc. 33.3 g/dL (32.0-36.0); Monocytes # (auto) 0.6 10 ^3/uL (0-1.3); Neutrophils % (auto) 61.8 % (37.0-80.0); Nucleated Red Blood Cells % 0.1 %; Red Cell Distribution Width 13.6 % (11.8-14.3); White Blood Cell 8.2 10^3/uL (4.4-10.8)
[2023-12-07 06:55] LABS: Alanine Aminotransferase 20 U/L (7-40); Albumin 3.5 g/dL (3.2-4.8); Alkaline Phosphatase 60 U/L (46-116); Anion Gap 4 (5-15); Aspartate Aminotransferase 12 U/L (13-40); BUN/Creatinine Ratio 13.7 (10.0-20.0); Bilirubin, Total 0.3 mg/dL (0.2-1.0); Blood Urea Nitrogen 14 mg/dL (9-23); Calcium 9.3 mg/dL (8.7-10.4); Carbon Dioxide 25 mmol/L (20-30); Chloride 107 mmol/L (98-107); Glucose 194 mg/dL (74-106); Potassium 5.3 mmol/L (3.5-5.1); Sodium 136 mmol/L (136-145); Total Protein 6.2 g/dL (5.7-8.2)
[2023-12-07] MEDS: SODIUM ZIRCONIUM CYCL 10 GM PAK PO ONE (08:08)
[2023-12-07] MEDS: VANCOMYCIN 1GM/200ML 200 ML IV SCH (16:56)
[2023-12-08 01:00] VITALS: BP 134/74; PULSE 62; RESP 18; TEMP 98.1; O2SAT 97
[2023-12-08 04:36] LABS: Basophils # (auto) 0.1 10 ^3/uL (0-0.2); Basophils % (auto) 1.2 % (0.0-2.0); Eosinophils # (auto) 0.3 10 ^3/uL (0-0.8); Eosinophils % (auto) 3.6 % (0.0-7.0); Hematocrit 32.9 % (36.0-46.0); Hemoglobin 10.9 g/dL (12.2-16.2); Lymphocytes # (auto) 2.2 10 ^3/uL (0.4-5.4); Lymphocytes % (auto) 27.7 % (10.0-50.0); Mean Corpuscular Hemoglobin 31.8 pg (28.0-32.0); Mean Corpuscular Hgb Conc. 33.1 g/dL (32.0-36.0); Mean Corpuscular Volume 96.2 fL (80.0-100.0); Monocytes # (auto) 0.6 10 ^3/uL (0-1.3); Monocytes % (auto) 7.3 % (0.0-12.0); Neutrophils # (auto) 4.8 10 ^3/uL (1.6-8.6); Neutrophils % (auto) 60.2 % (37.0-80.0); Nucleated Red Blood Cells % 0.1 %; Red Blood Cells 3.42 10^6/uL (4.0-5.20); Red Cell Distribution Width 13.8 % (11.8-14.3)
[2023-12-08 04:47] LABS: Alanine Aminotransferase 17 U/L (7-40); Albumin 3.6 g/dL (3.2-4.8); Alkaline Phosphatase 58 U/L (46-116); Anion Gap 2 (5-15); Aspartate Aminotransferase 12 U/L (13-40); BUN/Creatinine Ratio 17.6 (10.0-20.0); Blood Urea Nitrogen 18 mg/dL (9-23); Calcium 9.4 mg/dL (8.7-10.4); Carbon Dioxide 27 mmol/L (20-30); Chloride 108 mmol/L (98-107); Glucose 144 mg/dL (74-106); Potassium 4.5 mmol/L (3.5-5.1); Sodium 137 mmol/L (136-145)
[2023-12-08 04:48] LABS: Bilirubin, Total 0.3 mg/dL (0.2-1.0); Total Protein 6.3 g/dL (5.7-8.2)
[2023-12-08 08:00] VITALS: BP 130/78; PULSE 66; RESP 18; TEMP 98; O2SAT 96
[2023-12-08 08:52] VITALS: BP 145/58; PULSE 65; RESP 14; TEMP 97.3; O2SAT 98
[2023-12-08] MEDS: EMPAGLIFLOZIN 10 MG TAB PO SCH (09:59)
[2023-12-08 13:00] VITALS: BP 130/78; PULSE 66; RESP 18; TEMP 98; O2SAT 96
[2023-12-08 16:47] VITALS: BP 130/80; PULSE 78; RESP 18; TEMP 97.2; O2SAT 98
[2023-12-08 20:00] VITALS: BP 140/104; PULSE 71; RESP 18; TEMP 97.8; O2SAT 95
[2023-12-09] VITALS (8 sets, daily range): BP systolic 117–141; BP diastolic 51–82; PULSE 62–81; RESP 14–18; TEMP 97–98.4; O2SAT 93–98
[2023-12-09 12:50] LABS: COVID19 ANTIGEN SOFIA FIA NEGATIVE (NEGATIVE)
[2023-12-10 01:08] VITALS: BP 126/71; PULSE 71; RESP 18; TEMP 97.7; O2SAT 96
[2023-12-10 05:14] VITALS: BP 138/74; PULSE 66; RESP 18; TEMP 97.5; O2SAT 96
[2023-12-10 08:00] VITALS: BP 119/77; PULSE 83; RESP 18; TEMP 97.7; O2SAT 93
[2023-12-10 08:30] VITALS: BP 119/77; PULSE 83; RESP 18; TEMP 97.7; O2SAT 93
[2023-12-10 09:46] VITALS: BP 119/77; PULSE 83; RESP 18; TEMP 97.7; O2SAT 93
[2023-12-10 12:30] VITALS: BP 122/79; PULSE 82; RESP 18; TEMP 98.1; O2SAT 97
== END 2023-12-10 13:45 | DRG 853 ==
LOC: ER 17:08 → OVERFLOW 23:36 → EAST 12-01 10:02
PROVIDERS: ADMIT Nurse Practitioner Family; ATTEND Family Medicine
PROC: 02HV33Z Insertion of Infusion Device into Superior Vena Cava, Percutaneous Approach (ICD-10-PCS; 2023-12-03)
PROC: B548ZZA Ultrasonography of Superior Vena Cava, Guidance (ICD-10-PCS; 2023-12-03)
PROC: 0QBL0ZZ Excision of Right Tarsal, Open Approach (ICD-10-PCS; principal; 2023-12-04 10:26)
PROC: 0JBQ0ZZ Excision of Right Foot Subcutaneous Tissue and Fascia, Open Approach (ICD-10-PCS; 2023-12-06)
PROC: 2W1SX6Z Compression of Right Foot using Pressure Dressing (ICD-10-PCS; 2023-12-06)
DX: A41.9 Sepsis, unspecified organism (principal); N17.0 Acute kidney failure with tubular necrosis; E11.52 Type 2 diabetes mellitus with diabetic peripheral angiopathy with gangrene; E87.1 Hypo-osmolality and hyponatremia; E87.21 Acute metabolic acidosis; N39.0 Urinary tract infection, site not specified; M86.171 Other acute osteomyelitis, right ankle and foot; M31.8 Other specified necrotizing vasculopathies; L03.115 Cellulitis of right lower limb; E11.621 Type 2 diabetes mellitus with foot ulcer; Z20.822 Contact with and (suspected) exposure to COVID-19; E11.65 Type 2 diabetes mellitus with hyperglycemia; L97.519 Non-pressure chronic ulcer of other part of right foot with unspecified severity; E11.628 Type 2 diabetes mellitus with other skin complications; E11.69 Type 2 diabetes mellitus with other specified complication; J43.9 Emphysema, unspecified; E66.9 Obesity, unspecified; I12.9 Hypertensive chronic kidney disease with stage 1 through stage 4 chronic kidney disease, or unspecified chronic kidney disease; E11.22 Type 2 diabetes mellitus with diabetic chronic kidney disease; N18.30 Chronic kidney disease, stage 3 unspecified; E83.42 Hypomagnesemia; D63.8 Anemia in other chronic diseases classified elsewhere; Z68.31 Body mass index [BMI] 31.0-31.9, adult; Z88.2 Allergy status to sulfonamides; Z88.7 Allergy status to serum and vaccine; Z83.3 Family history of diabetes mellitus; Z80.0 Family history of malignant neoplasm of digestive organs; Z84.1 Family history of disorders of kidney and ureter; Z89.519 Acquired absence of unspecified leg below knee
CPT/HCPCS: 36415; 36569; 71045; 73630; 73650; 73718; 76000; 76775; 80048; 80053; 80202; 81001; 82306; 82962; 83036; 83605; 83735; 83880; 83970; 84100; 84484; 85025; 85379; 85610; 85652; 85730; 86850; 86900; 86901; 87040; 87070; 87075; 87086; 87205; 87426; 93005; 93925; 93970; 96365; 96366; 96367; G0378; J1815; J2001; J2185; J2250; J2405; J2543; J2704; J3490

== ENCOUNTER 2025-01-06 10:02 | Day surgery (SDC) | payer MEDICARE, BC ==
[2025-01-01 11:07] LABS: Basophils # (auto) 0.1 10 ^3/uL (0-0.2); Basophils % (auto) 0.6 % (0.0-2.0); Eosinophils # (auto) 0.2 10 ^3/uL (0-0.8); Hematocrit 43.9 % (36.0-46.0); Hemoglobin 14.4 g/dL (12.2-16.2); Lymphocytes # (auto) 1.5 10 ^3/uL (0.4-5.4); Mean Corpuscular Hemoglobin 31.6 pg (28.0-32.0); Mean Corpuscular Hgb Conc. 32.8 g/dL (32.0-36.0); Mean Corpuscular Volume 96.3 fL (80.0-100.0); Monocytes # (auto) 0.7 10 ^3/uL (0-1.3); Monocytes % (auto) 8.3 % (0.0-12.0); Neutrophils # (auto) 6.4 10 ^3/uL (1.6-8.6); Neutrophils % (auto) 72.1 % (37.0-80.0); Platelet Count (auto) 231 10^3/uL (140-450); Red Blood Cells 4.55 10^6/uL (4.0-5.20); Red Cell Distribution Width 14.3 % (11.8-14.3); White Blood Cell 8.9 10^3/uL (4.4-10.8)
[2025-01-01 11:12] LABS: Urine Bacteria None Seen /hpf (None Seen); Urine Blood Negative /uL (Negative); Urine Clarity Clear (Clear); Urine Color Light-Yellow (Yellow); Urine Protein, UAD Negative (Negative); Urine Specific Gravity 1.012 (1.001-1.035); Urine Squamous Epithelial Cell FEW /hpf (<5); Urine Urobilinogen Normal (Negative); Urine WBC 13 /HPF (0-5)
[2025-01-01 11:16] LABS: Alanine Aminotransferase 16 U/L (7-40); Albumin 4.5 g/dL (3.2-4.8); Alkaline Phosphatase 59 U/L (46-116); Anion Gap 12 (5-15); Aspartate Aminotransferase 13 U/L (13-40); BUN/Creatinine Ratio 26.8 (10.0-20.0); Bilirubin, Total 0.5 mg/dL (0.2-1.0); Calcium 10.3 mg/dL (8.7-10.4); Carbon Dioxide 22 mmol/L (20-31); Chloride 105 mmol/L (98-107); Potassium 4.5 mmol/L (3.5-5.1); Sodium 139 mmol/L (136-145); Total Protein 7.6 g/dL (5.7-8.2)
[2025-01-01 11:20] LABS: Blood Urea Nitrogen 33 mg/dL (9-23); Glucose 165 mg/dL (74-106)
[2025-01-01 11:22] LABS: Partial Thromboplastin Time 27.5 SEC (24.5-34.5); Prothrombin Time 10.6 sec (9.3-11.8)
[~2025-01-06] VITALS: Ht 177.8 cm; Wt 93.0 kg
[~2025-01-06 10:02] MED LIST changes: +CRANPOW XX; +EMPA1TAB PO; +MAGN400T40 OR; -METF-370 PO; +PROB1CHW27 PO
[2025-01-06] MEDS ORDERED: ceFAZolin 2 GM/D5W50ml 50 ML IV ONE (10:08)
[2025-01-06] MEDS ORDERED: LIDOCAINE W/ EPINEPHRINE 1% 20ML VIAL ONE (10:12)
--- NOTE | 2025-01-06 10:13 | DVHOP2 ---
Operative Report - 2 Report Details Date: 01/06/25 Preop Diagnosis: 1. Right foot painful hardware 2. Right foot mallet toe 3. Right foot pain Postop Diagnosis: Right foot painful hardware, right foot mallet toe Surgeon: Candie tSewart MD Anesthesiologist: See anesthesia Anesthesia: General Consent: The patient was informed of the risks and benefits of the procedure. These include but are not limited to complications of anesthesia, postoperative infection, incomplete relief of symptoms, recurrence of symptoms, damage to blood vessels, nerves and tendons, deep venous thrombosis, pulmonary embolism and possible need for repeat surgery in the future. Complications: None Estimated Blood Loss: Minimal Fluids: See anesthesia Findings: Consistent with the diagnosis Indications for Surgery: Worsening right foot pain Name of Procedure Performed 1. Right foot hardware removal (56848) 2. Right foot mallet toe repair (08297) 3. Right hallux flexor tenotomy (26267) Procedure Details Procedure Details: PRE-PROCEDURE INFORMATION: In the pre-op holding area, the extremity to be operated on was clearly marked and the patient verified correct laterality of the marking. The patient was transferred to the OR table and placed in a supine position. A timeout was performed in which identification of the correct patient, procedure, location, and materials was done. The right foot and leg were prepped and draped in normal sterile fashion. DESCRIPTION OF PROCEDURE: Attention was directed to the right hallux where the painful hardware was noted to be extruding from the skin. An incision was made approximately 1 cm long just medial to the hardware. The incision was deepened through blunt and sharp dissection. Care was taken to the way neurovascular and tendinous structures. The hardware was then exposed and removed with a hemostat. The area was then closed with a 4-0 nylon. Attention was directed to the right hallux where hammertoe was located was located. A stab incision was made medial to the right hallux. The incision was deepened through blunt and sharp dissection. Care was taken to avoid any neurovascular and tendinous structures. Using the Arthrex MIS bur, an osteotomy was performed and correction of the rigid hammertoe was noted. After the bur was used the exostosis was no longer felt clinically. The incision was closed with a 4-0 nylon. Attention was directed to the right hallux where contracture was noted, using a 18 gauge needle, the toe was extended and a sweeping motion was made on the FDL. It was noted that the contracture of the digit was then relieved after the flexor tendon was released. All surgical wounds were irrigated copiously with saline and closed in layers with the aforementioned suture material. A dry sterile dressing was placed on the surgical extremity. The patient was placed in a post op shoe POSTOPERATIVE INFORMATION: The patient tolerated the above noted procedure and anesthesia well and was transferred to the PACU with vital signs stable, and vascular status intact with capillary refill intact to all digits. Postoperative instructions reviewed in detail with the patient with written instructions provided. Patient will return to clinic in approximately 10-14 days for first postoperative visit. Patient has the number of the clinic and was instructed to call prior to that time should any problems, questions, or concerns arise. Condition Good Disposition Home CANDIE STEWART DPM January 06, 2025 10:13
[2025-01-06] MEDS ORDERED: fentaNYL CITRATE 100 MCG/2 ML VL ONE (10:14)
[2025-01-06] MEDS ORDERED: PROPOFOL 10 MG/ML 20 ML IV ONE (10:14)
[2025-01-06] MEDS ORDERED: MIDAZOLAM HCL 2MG/2ML 2ml VIAL (1mg/ml) ONE (10:14)
[2025-01-06] MEDS ORDERED: ONDANSETRON HCL 4 MG/2 ML VIAL ONE (10:15)
[2025-01-06] MEDS ORDERED: METOCLOPRAMIDE HCL 5MG/ml INJ 2ml VIAL ONE (10:15)
[2025-01-06] MEDS ORDERED: ONDANSETRON HCL 4 MG/2 ML VIAL IV ONE (10:30)
[2025-01-06] MEDS ORDERED: HYDROmorphone HCL 2 MG/ML VL/or syr IV PRN (10:30)
[2025-01-06] MEDS ORDERED: KETOROLAC TROMETH 30 MG/ML 1ML VIAL IV ONE (10:30)
[2025-01-06] MEDS ORDERED: hydrALAZINE HCL 20 MG/ML VL IV PRN (10:30)
[2025-01-06] MEDS: LIDOCAINE 1% HCL (LOCAL ANESTH.) INJ 20ML MDV ONE (10:54)
[2025-01-06 10:59] VITALS: PULSE 80; RESP 20; O2SAT 99
[2025-01-06 11:09] VITALS: PULSE 88; RESP 16; O2SAT 91
[2025-01-06 11:44] VITALS: BP 93/56; PULSE 81; RESP 20; O2SAT 95
== END 2025-01-06 11:59 | disposition home or self-care (01) ==
LOC: SUR 10:02
PROVIDERS: ATTEND Podiatrist
DX: T84.84XA Pain due to internal orthopedic prosthetic devices, implants and grafts, initial encounter (principal); Y82.8 Other medical devices associated with adverse incidents; M20.5X1 Other deformities of toe(s) (acquired), right foot; M20.41 Other hammer toe(s) (acquired), right foot; K44.9 Diaphragmatic hernia without obstruction or gangrene; I10 Essential (primary) hypertension; E11.40 Type 2 diabetes mellitus with diabetic neuropathy, unspecified; F17.210 Nicotine dependence, cigarettes, uncomplicated; Z90.89 Acquired absence of other organs; Z98.890 Other specified postprocedural states; Z88.1 Allergy status to other antibiotic agents; Z88.2 Allergy status to sulfonamides
CPT/HCPCS: 20680; 28285; 36415; 80053; 81001; 82962; 85025; 85610; 85730; J0690; J2003; J2250; J2405; J2704; J2765; J3010